=== PATIENT | male | born 1955 | race Caucasian/White ===

== ENCOUNTER 2016-12-21 10:48 | Day surgery (SDC) | payer OTHER ==
[~2016-12-21] VITALS: Ht 172.7 cm; Wt 84.8 kg
[~2016-12-21 10:48] MED LIST: LISINOPRIL-HCT1 EAC2 PO; TIMOPTIC 0.5%1 EACH OPTH; TRAVATAN Z5 ML OPTH
--- NOTE | 2016-12-21 12:40 | NUR ---
12/21/16 1240 Adrienne Powers 1236 PATIENT ARRIVES TO PACU AWAKE, DENIES PAIN. RESP EVEN AND UNLABORED, NC AT 3 LITERS. BACK TO SLEEP AFTER ARRIVAL.
--- NOTE | 2017-01-01 10:36 | OR ---
[facility] [address] [place], [place] [address] Signed DATE OF PROCEDURE: 12/21/16 PREOPERATIVE DIAGNOSIS: Screening colonoscopy. POSTOPERATIVE DIAGNOSIS Normal colon to cecum except for a small mucosal lesion at splenic flexure (excised). PROCEDURE Total colonoscopy to cecum with cold morcellation polypectomy x1. SURGEON: Huma Moore MD. ANESTHESIA Intravenous sedation with Fentanyl 150 mcg and Versed 6 mg. INDICATION This 61-year-old white man is a patient of Kem Bassett MD and is here for screening colonoscopy. He has no symptoms of bleeding, diarrhea, or constipation. He has no family history of colon cancer. He is admitted to undergo colonoscopy, understand the risks of bleeding, infection, and perforation. FINDINGS The prep was excellent. Complete colonoscopy was undertaken to the cecum. There was a mucosal lesion at the splenic flexure, which was excised with cold morcellation technique. Most likely, this represents a hyperplastic polyp. The remaining colon was normal. DESCRIPTION OF PROCEDURE The patient was brought to the endoscopy suite and placed in lateral decubitus position. Given intravenous sedation to the point of slurred speech and nystagmus. Digital rectal examination was normal. Olympus video colonoscope was passed in the rectum and manipulated throughout the colon noting a very excellent bowel prep. The scope was ultimately passed to the cecum. The ileocecal valve and appendiceal orifice were normal. The scope was withdrawn from that point. Examination throughout showed no sign of abnormality until the splenic flexure (downstream side), where a small mucosal lesion was noted. It was not aggressive looking in any way, but was excised completely with cold morcellation technique. The scope was further withdrawn and no other findings were noted. Retroflex view in the rectum was noted to be normal as well. The scope was removed and the patient was taken to recovery room in good condition. CONCLUDING DIAGNOSIS Essentially normal colon except for mucosal lesion at the splenic flexure (excised). Electronically Signed By: HUMA MOORE MD 01/01/17 1036 PATIENT NAME: TORY BAEZA OPERATIVE REPORT DATE OF : 53 PHYSICIAN: HUMA MOORE MD REPORT #: [id number] REPORT IS CONFIDENTIAL AND NOT TO BE RELEASED WITHOUT AUTHORIZATION [facility] [address] [place], [place] [address] Signed PLAN We will review pathology report of the excised lesion unless it is an unexpected adverse adenomatous lesion. I would recommend repeat colonoscopy in 10 years, sooner if clinically indicated. He will return to the ongoing care of Dr. Bassett. MD MORENITA Morrison/Onel /[id number] cc: Kem Bassett MD Electronically Signed By: HUMA MOORE MD 01/01/17 1036 PATIENT NAME: TORY BAEZA OPERATIVE REPORT DATE OF : 53 PHYSICIAN: HUMA MOORE MD REPORT #: [id number] REPORT IS CONFIDENTIAL AND NOT TO BE RELEASED WITHOUT AUTHORIZATION
== END 2016-12-21 13:10 | disposition home or self-care (01) ==
LOC: OPS 10:48 → DS 12:00 → OPS 12:00
PROVIDERS: Surgery
PROC: 0DBL8ZX Excision of Transverse Colon, Via Natural or Artificial Opening Endoscopic, Diagnostic (ICD-10-PCS; principal; 2016-12-21 12:00)
DX: Z12.11 Encounter for screening for malignant neoplasm of colon (principal); I10 Essential (primary) hypertension
CPT/HCPCS: 99152; 99153; J2250; J3010; J7120

== ENCOUNTER 2017-10-25 08:48 | Day surgery (SDC) | payer OTHER ==
[~2017-10-25] VITALS: Ht 172.7 cm; Wt 83.9 kg
--- NOTE | 2017-10-25 12:14 | NUR ---
10/25/17 1214 Adrienne Powers 1208 PATIENT ARRIVES TO PACU AWAKE, BUT DROWSY, DENIES PAIN OR NAUSEA. ASLEEP OFF/ON. RESP EVEN AND UNLABORED, ROOM AIR AT 97%.
[2017-10-25] MEDS ORDERED: IBUPROFEN600 MG PO (12:23)
[2017-10-25] MEDS ORDERED: OXYCODON-ACETA1 EAC2 PO (12:24)
[2017-10-25] MEDS ORDERED: MAPAP325 MG PO (12:24)
--- NOTE | 2017-10-25 18:57 | OR ---
[facility] [address] [place], [place] [address] Signed DATE OF OPERATION: 10/25/2017 SURGEON: Huma Moore MD PREOPERATIVE DIAGNOSIS: Symptomatic right posterior neck soft tissue mass. POSTOPERATIVE DIAGNOSIS: Symptomatic right posterior neck soft tissue mass, probable lipoma adherent to posterior neck muscle compartment fascia. PROCEDURE: Excision of 3 cm right posterior neck soft tissue mass. ANESTHESIA: Local with monitored anesthesia care, David SARAN Pablo, and 0.25% Marcaine with epinephrine. INDICATION: This 61-year-old white man is a patient of Dr. Bassett. He was noted to have a soft tissue mass of the right posterior neck. The lesion is occasionally uncomfortable, but it showed no evidence of drainage or infection. It was considered likely an epidermal inclusion cyst by Dr. Bassett. He wishes to have it excised. He understands the risks of bleeding, infection, recurrence, need for additional treatment, and other unforeseen complications and wished to proceed. FINDINGS: The lesion was most consistent with a lipoma. It was adherent to the fascia deeply and was excised in continuity with the fascia. Complete excision was undertaken and the lesion is most consistent with a lipoma rather than epidermal inclusion cyst or lymph node. DESCRIPTION OF PROCEDURE: The patient was brought to the operating room and placed in lateral decubitus position left side down. The posterior neck and shoulder and so forth were well exposed and prepared with a chlorhexidine solution after intravenous sedation administered. Preoperative antibiotic Ancef was given. Sequential compression device stockings were used and heparin subcutaneously administered. After sterile preparation, the area was marked with a marking pen and 0.25% Marcaine with epinephrine was injected in a field block configuration. A transverse incision was made directly over it cephalad to a Electronically Signed By: HUMA MOORE MD 10/25/17 0537 PATIENT NAME: TORY BAEZA OPERATIVE REPORT DATE OF : 53 REPORT #: [id number] PHYSICIAN: HUMA MOORE MD PCP: NAZARIO BASSETT MD REPORT IS CONFIDENTIAL AND NOT TO BE RELEASED WITHOUT AUTHORIZATION [facility] [address] [place], [place] [address] Signed natural skin crease. Dissection was carried through the dermis sharply and using sharp dissection with a #15 blade, the lesion was further dissected free from the surrounding fatty tissue. It was most consistent with a lipoma. Dissection was carried with meticulous care down to the fascial edge of the muscular compartment of the posterior neck and the lesion excised in continuity with the fascia away from the muscle itself. Full excision was undertaken. The lesion was approximately 3 cm. Once excised, photographs were taken. Additional local anesthetic was injected and the wound was closed in layers with interrupted 2-0 Vicryl and running subcuticular 3-0 Vicryl. Steri-Strips were applied as was the Mepilex silver sponge dressing and an OpSite. The patient tolerated the procedure well. Blood loss was minimal. He was allowed to emerge from sedation and taken to recovery room in good condition having suffered no complication. MD MORENITA Morrison/SALVADORL /[id number] cc: Nazario Bassett MD Copies: NAZAROI BASSETT MD ~ Electronically Signed By: HUMA MOORE MD 10/25/17 1857 PATIENT NAME: TORY BAEZA OPERATIVE REPORT DATE OF : 53 REPORT #: [id number] PHYSICIAN: HUMA MOORE MD PCP: NAZARIO BASSETT MD REPORT IS CONFIDENTIAL AND NOT TO BE RELEASED WITHOUT AUTHORIZATION
== END 2017-10-25 12:45 | disposition home or self-care (01) ==
LOC: DS 08:48 → OPS 08:48 → DS 11:15
PROVIDERS: Surgery
PROC: 0JB40ZZ Excision of Right Neck Subcutaneous Tissue and Fascia, Open Approach (ICD-10-PCS; principal; 2017-10-25 11:15)
DX: D17.0 Benign lipomatous neoplasm of skin and subcutaneous tissue of head, face and neck (principal); I10 Essential (primary) hypertension; Z79.899 Other long term (current) drug therapy
CPT/HCPCS: 00300; J0690; J1644; J2704; J3010; J7120

== ENCOUNTER 2022-05-14 05:35 | Day surgery (SDC) | payer MEDICARE, OTHER ==
[~2022-05-14] VITALS: Ht 175.3 cm; Wt 90.9 kg
[~2022-05-14 05:35] MED LIST changes: +IBUPROFEN600 MG PO; +MAPAP325 MG PO; +OMEPRAZOLE40 MG PO; +OXYCODON-ACETA1 EAC2 PO; +XALATAN2.5 ML OPTH
[2022-05-14] MEDS ORDERED: TRAMADOL HCL50 MG PO (08:47)
--- NOTE | 2022-05-14 08:50 | NUR ---
05/14/22 0850 Leeanna Shelton 0840- PT ARRIVES TO PACU AWAKE AND TALKING. RESP EVEN AND UNLABORED. OXYGEN SAT MID TO HIGH 90'S ON RA. ICE PACK APPLIED TO PT'S RIGHT HAND/ WRIST.
--- NOTE | 2022-05-14 10:08 | NUR ---
PT ALERT, ORIENTED AND SUPPORTED BY HIS NGUYEN. 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 NGUYEN WILL REMAIN FOR DC, GAVE ENCOURAGEMENT AND BLESSING. WILL FOLLOW
--- NOTE | 2022-05-17 08:42 | OR ---
[facility] [address] [place], [place] [address] Signed DATE OF OPERATION: 05/14/2022 SURGEON: Katherine Cid MD PREOPERATIVE DIAGNOSIS: Trigger fingers, right mid and long fingers. POSTOPERATIVE DIAGNOSIS: Trigger fingers, right mid and long fingers. PROCEDURE PERFORMED: Right hand trigger finger release, right long and mid. BARREL CAP SETTER: None. ANESTHESIA: [place] block. TOURNIQUET TIME: 15 minutes. BRIEF HISTORY: Jai is a 66-year-old gentleman with locking in his ring and long fingers. He wished to have these release. Risks and benefits were discussed and he understands, wished to proceed. PROCEDURE IN DETAIL: Once consent was obtained, he was taken to the operating room. After adequate anesthesia, he was left on the day surgery bed and the hand table was brought in. The arm was prepped and draped in a standard sterile fashion. The middle finger was approached first through a 1 cm incision, carried down to the flexor tendon sheath. There were some early Dupuytren's contractures in the region and these were released. The A1 leno was then dissected free of overlying soft tissue and released under loupe magnification. The long finger was approached the same way and both were then copiously irrigated with normal saline, closed with 3-0 nylon and injected with 5 mL 0.25% plain Marcaine. The wound was then dressed with bacitracin, Adaptic, 4 x 8s, and gauze. He tolerated the procedure well. All sponge, needle, and instrument counts were correct. Electronically Signed By: KATHERINE CID MD 05/17/22 0842 PATIENT NAME: TORY BAEZA OPERATIVE REPORT DATE OF : 53 REPORT #: [id number] PHYSICIAN: KATHERINE CID MD PCP: MICHELLE ORTEGA PA-C REPORT IS CONFIDENTIAL AND NOT TO BE RELEASED WITHOUT AUTHORIZATION [address] [place], [place] [address] Signed Katherine Cid MD BA/MODL /[id number] Copies: ~ Electronically Signed By: KATHERINE CID MD 05/17/22 0842 PATIENT NAME: TORY BAEZA OPERATIVE REPORT DATE OF : 53 REPORT #: [id number] PHYSICIAN: KATHERINE CID MD PCP: MICHELLE ORTEGA PA-C REPORT IS CONFIDENTIAL AND NOT TO BE RELEASED WITHOUT AUTHORIZATION
== END 2022-05-14 09:25 | disposition home or self-care (01) ==
LOC: DS 05:35
PROVIDERS: ATTEND Specialist
PROC: 0RNH4ZZ Release Left Acromioclavicular Joint, Percutaneous Endoscopic Approach (ICD-10-PCS; principal; 2022-05-14 08:30)
DX: M65.331 Trigger finger, right middle finger (principal); K21.9 Gastro-esophageal reflux disease without esophagitis; I10 Essential (primary) hypertension
CPT/HCPCS: J0690; J2001; J2704; J7121